=== PATIENT | female | born 1985 | race Two or more races ===

== ENCOUNTER 2023-08-21 16:34 | Emergency (ER) | payer BC ==
[~2023-08-21] VITALS: Ht 162.6 cm; Wt 68.0 kg
[2023-08-21] MEDS ORDERED: ALPRAZOLAM0.25 MG PO (17:56)
[2023-08-21] MEDS ORDERED: ESCITALOPRAM OX20 MG PO (17:57)
[2023-08-21] MEDS ORDERED: BUSPIRONE HCL15 MG PO (17:57)
[2023-08-21] MEDS ORDERED: JARDIANCE10 MG PO (17:57)
[2023-08-21] MEDS ORDERED: PROPRANOLOL HCL10 MG PO (17:57)
[2023-08-21] MEDS ORDERED: ATOMOXETINE HCL60 MG PO (17:57)
[2023-08-21] MEDS ORDERED: KETOROLAC TROMETHAMINE 30 MG VIAL IM STA (18:08)
== END 2023-08-21 19:02 | disposition home or self-care (01) ==
LOC: ER 16:35
DX: M26.609 Unspecified temporomandibular joint disorder, unspecified side (principal); Z88.1 Allergy status to other antibiotic agents